=== PATIENT | female | born 1955 | race Caucasian/White ===

== ENCOUNTER 2022-01-20 15:46 | Emergency (ER) | payer MEDICARE, BC, SELFPAY ==
[2022-01-20] VITALS (12 sets, daily range): BP systolic 151–187; BP diastolic 90–116; PULSE 54–68; RESP 28; TEMP 36.4; O2SAT 87–100; BMI 31.6
--- NOTE | 2022-01-20 16:21 | ED_ITS ---
HPI - General Adult General Time Seen by Provider: 16:22 Date Seen: 01/20/22 Chief complaint: Flank Pain Stated complaint: Severe Back Pain (lower left),Nausea Time Seen by Provider: 01/20/22 16:21 Source: patient and RN notes reviewed Mode of arrival: ambulatory Limitations: no limitations History of Present Illness HPI narrative: This 66-year-old female is coming in with sudden onset of left low back pacing that is now radiating around into the lower abdomen that started abruptly a few hours ago. It is severe, is making her extremely nauseated but she has not thrown up yet. No change in bowel habits prior to this. No urinary symptoms with this. She has not been sick with anything like cough cold symptoms. She has had no fevers with this. She has no history of kidney stones. She has had no prior abdominal surgeries. She states she has no underlying kidney problems, is never been treated for hypertension or diabetes. Denies any chronic medical issues, denies prior abdominal surgeries. She is on no medicines. She denies any family history of any kidney stones or any known abdominal issues or surgeries with other family members. She does feel like this left back pain which is now radiating into the abdomen feels like it goes towards her left groin. Related Data Home Medications Medication Instructions Recorded Confirmed No Known Home Medications 01/20/22 01/20/22 Allergies Allergy/AdvReac Type Severity Reaction Status Date / Time codeine Allergy Verified 01/20/22 15:59 Review of Systems Status of ROS: Reports: 10 or more systems reviewed and unremarkable except as noted in History and below PFSH PFSH Social History Smoking Status: Never smoker Do you use any of these nicotine containing products: None Second hand tobacco smoke exposure: No How often do you have a drink containing alcohol: never How often do you have six or more drinks on one occasion: Never AUDIT-C Alcohol total score: 0 Non-prescribed substance use: denies use service: No Exam Const: Vital Signs, click to edit/add: Vital Signs - 24 hr 01/20/22 15:56 01/20/22 16:30 01/20/22 16:44 Temperature 97.6 F 97.6 F Pulse Rate Pulse Rate [Right Pulse Oximeter] 68 68 Respiratory Rate 28 H 28 H Blood Pressure Blood Pressure [Ri ght Upper Arm] 179/91 H 179/91 H 151/90 H Pulse Oximetry 100 100 Oxygen Delivery Me thod Room Air Room Air 01/20/22 17:00 01/20/22 17:28 01/20/22 17:30 Temperature Pulse Rate 61 57 L Pulse Rate [Right Pulse Oximeter] Respiratory Rate Blood Pressure 185/103 H Blood Pressure [Ri ght Upper Arm] 184/108 H Pulse Oximetry 95 87 L Oxygen Delivery Me thod 01/20/22 17:31 01/20/22 17:32 01/20/22 17:45 Temperature Pulse Rate 54 L 56 L 55 L Pulse Rate [Right Pulse Oximeter] Respiratory Rate Blood Pressure 187/110 H Blood Pressure [Ri ght Upper Arm] Pulse Oximetry 98 93 99 Oxygen Delivery Me thod 01/20/22 18:00 01/20/22 18:03 01/20/22 18:15 Temperature Pulse Rate 67 63 62 Pulse Rate [Right Pulse Oximeter] Respiratory Rate Blood Pressure 180/116 H Blood Pressure [Ri ght Upper Arm] Pulse Oximetry 96 99 99 Oxygen Delivery Me thod Documenting provider has reviewed patient's vital signs: yes Common normals: oriented x3, no limitations and alert General appearance: cooperative, well kempt and in distress (Seems quite uncomfortable, keeps eyes closed and is hyperventilating) Nutritional appearance: overweight HENMT: Common normals: normocephalic, head/scalp atraumatic, hearing grossly normal bilaterally, external ears normal, external nose normal, nasal mucous membranes and turbinates normal, moist oral mucous membranes, oropharynx normal, dentition normal and gingiva normal Head and scalp: normocephalic and atraumatic Nose: external nose normal and nasal mucous membranes and turbinates normal External ear: external ears normal Neck & C-Spine: Common normals: full ROM, no lymphadenopathy, supple, no meningeal signs and no JVD Resp: Common normals: normal respiratory effort, no retractions, no use of accessory muscles and clear to auscultation bilaterally Auscultation: clear to auscultation bilaterally Cardio: Common normals: no JVD, regular rate, regular rhythm, S1 normal heart sound, S2 normal heart sound, no gallops, no clicks and no murmurs Rate: regular rate Rhythm: regular rhythm Heart sounds: S1 normal and S2 normal GI: Common normals: Normal to inspection, nondistended, normoactive bowel sounds present, soft to palpation, no hepatosplenomegaly, no masses and no bruits Palpation: soft and no hepatosplenomegaly Other: Has some left mid lateral abdominal pain but no rebound or guarding, no underlying masses. Neuro: Common normals: oriented x3 Sensorium/orientation: alert Meningeal signs: no meningeal signs Psych: Appearance: well kempt Course Course Hospital Course: We will place an IV, initiate Toradol and Zofran for symptom control. She will get a CT noncontrast in appropriate labs including CBC, basic metabolic panel and urinalysis. Reviewed with patient that I suspect that she has a kidney stone. Will consider other intra-abdominal pathology. I doubt this is musculoskeletal. Reevaluation(s) Reevaluation #1: Reviewed with patient her CT findings. We did review the incidental findings of the incompletely visualized right femur cyst, gallstones. We also reviewed her left 2 mm distal kidney stone. We reviewed that this is likely the pass. She is feeling better on the medicines given. Did also review that her blood pressures were elevated here but she is in pain. Also reviewed that her glucose was mildly up at 1:58 a.m., although stressed can increase this. She reported she had a physical in October when her glucose was a little elevated but hemoglobin A1c was normal. Advised patient that this needs to be followed, could be starting to develop some glucose intolerance and might start to see some escalating hemoglobin A1cs. Awaiting on urinalysis and do need to see that prior to discharge. Time: 17:52 Vital Signs Vital signs: Initial Vital Signs Temperature 97.6 F 01/20/22 15:56 Temperature Source Temporal Artery Scan 01/20/22 15:56 Pulse Rate 68 01/20/22 15:56 Respiratory Rate 28 H 01/20/22 15:56 Blood Pressure 179/91 H 01/20/22 15:56 Blood Pressure Mean 120 01/20/22 15:56 Blood Pressure Position Sitting 01/20/22 15:56 Pulse Oximetry 100 01/20/22 15:56 Oxygen Delivery Method 01/20/22 15:56 Vital Signs Temperature 97.6 F 01/20/22 15:56 Pulse Rate 68 01/20/22 15:56 Respiratory Rate 28 H 01/20/22 15:56 Blood Pressure 179/91 H 01/20/22 15:56 Pulse Oximetry 100 12/10/22 15:56 Oxygen Delivery Method 01/20/22 15:56 Temperature 97.6 F 01/20/22 16:30 Pulse Rate 62 01/20/22 18:15 Respiratory Rate 28 H 01/20/22 16:30 Blood Pressure 180/116 H 01/20/22 18:03 Pulse Oximetry 99 01/20/22 18:15 Oxygen Delivery Method 01/20/22 16:30 Medical Decision Making Lab Data Lab results reviewed: Yes I reviewed the patient's lab results Labs: Lab Results 01/20/22 01/20/22 01/20/22 Range/Units 16:35 16:35 18:30 WBC 10.31 (4.50-11.00) K/uL RBC 4.90 (4.00-5.20) m/uL Hgb 13.9 (12.0-16.0) gm/dL Hct 42.1 (33.0-51.0) % MCV 86 (80-100) fL MCH 28 (26-34) pg MCHC 33 (32-36) gm/dL RDW Coeff of Leopoldo 12.8 (11.5-15.5) % Plt Count 307 (140-440) K/uL Neut % (Auto) 80.3 H (42.0-72.0) % Lymph % (Auto) 12.4 L (20-44) % Fajardo % (Auto) 5.0 (0.0-11.0) % Eos % (Auto) 1.0 (0.0-7.0) % Baso % (Auto) 0.5 (0.0-3.0) % Neut # (Auto) 8.30 H (1.7-7.0) K/uL Lymph # (Auto) 1.30 (0.90-2.90) K/uL Fajardo # (Auto) 0.50 (0.00-0.90) K/UL Eos # (Auto) 0.10 (0.00-0.50) K/uL Baso # (Auto) 0.05 (0.00-0.30) K/uL Abs Immat Gran (auto) 0.08 (0.00-0.30) K/uL Imm/Tot Granulo (auto) 0.8 % Sodium 137 (135-149) mmol/L Potassium 3.4 L (3.6-5.1) mmol/L Chloride 104 (96-114) mmol/L Carbon Dioxide 19 L (20-32) mmol/L BUN 16 (7-30) mg/dL Creatinine 0.9 (0.5-1.5) mg/dL Estimated Creat Clear 49.80 Estimated GFR 71 ml/min Glucose 158 H (60-115) mg/dL Calcium 8.9 (8.4-10.6) mg/dL Urine Color Yellow (Yellow) Urine Appearance Clear (Clear) Urine pH 5.5 (5.0-8.5) Ur Specific Hamilton >= 1.030 (1.000-1.030) Urine Protein Negative (Negative) Urine Glucose (UA) Negative (Negative) Urine Ketones 3+ A (Negative) Urine Blood Negative (Negative) Urine Nitrite Negative (Negative) Urine Bilirubin Negative (Negative) Urine Urobilinogen 0.2 (0.2-1.0) Ur Leukocyte Esterase Negative (Negative) Urine RBC 0-2 (0-2) Urine WBC 0-2 (0-5) Ur Squamous Epith Cells Few (None-Few) Urine Bacteria None (None) Imaging Data CT scan - abdomen: Attestation: I have reviewed the pertinent imaging results. Radiologist's impression: Patient: MARBELLA ZELAYA Facility:?[facility] Patient ID:?[id number] Site Patient ID:?[id number]. Site :?[id number] Study:?CT Abdomen/Pelvis W/O-01/20/2022 5:04:01 PM Ordering Physician:Farheen Thakkar Final Report: INDICATION: Left-sided abdominal pain, radiating to back TECHNIQUE: CT abdomen and pelvis without contrast. COMPARISON: None. FINDINGS: [The visualized portions of the lung bases are clear.] Evaluation of the abdominal viscera is limited due to lack of IV contrast, however the liver, spleen, pancreas and adrenal glands are unremarkable.] [Gallstones are present within the nondistended gallbladder.] There is [id number] left hydronephrosis and perinephric inflammatory change. There is a 2 mm obstructing stone within the distal left ureter near the ureterovesical junction. Negative for right hydronephrosis or nephrolithiasis. The bladder is partially distended and unremarkable. Small hiatal hernia. [There are no dilated loops of small bowel to suggest obstruction.][The appendix is normal.][There are scattered colonic diverticuli without adjacent inflammatory change. No intraperitoneal free air or fluid.] Tiny fat containing periumbilical hernia. There is a 1.5 cm cyst, right adnexa. Lucent lesion within the proximal right femur is partially visualized. This measures at least 5 cm and extends into the femoral neck, the visualized overlying cortex is intact. IMPRESSION: 1. Mild to moderate left hydronephrosis with an obstructing 2 mm stone in the distal left ureter, near the ureterovesical junction. 2. Partially visualized lytic bone lesion within the proximal right femur, has a nonaggressive appearance, however is only partially visualized. Given the location this could potentially lead to a pathologic fracture. Recommend comparison to prior exams if available if no priors exams are available for comparison, consider initial further evaluation with radiographs. Please note that all CT scans at this facility use dose modulation, iterative reconstruction, and/or weight-based dosing when appropriate to reduce radiation dose to as low as reasonably achievable. Dictated by: Emam Contreras MD @ 01/20/2022 17:41:38 (Electronic Signature) Critical Care Time Critical Care Time Critical Care Time: No Discharge Plan Discharge Clinical Impression: Bone cyst of right femur, Gallstones, Renal colic on left side Condition: Stable Instructions: Gallstones (ED), Kidney Stones (ED), Renal Colic (ED) Additional Instructions: Use Toradol as needed for pain. Can supplement with Tylenol following bottle directions if needed for extra pain control. Use the Zofran as needed to control nausea. Do need to try to drink adequate fluids to have clear looking urine. As far as the kidney stone, this is 2 mm and should pass. Do need to see your primary care provider in follow-up within the next week. Need to review the incidental findings, have your blood pressure rechecked and discuss ongoing close monitoring of your glucose. For the femur cyst on the right side that was incompletely visualized on the CT, it may be that an MRI of the femur should be ordered, your primary care provider can talk to Radiology to see what is recommended for imaging. If you become symptomatic with gallstones, do need medical evaluation in the future. If you develop fever, uncontrolled pain or vomiting with this kidney stone, do need to return to the ED for further evaluation. Activity Level: Activity as Tolerated Discharge Diet: Regular Prescriptions: No Action No Known Home Medications Stand Alone Forms: [address] [facility] Fund I Info Instructions
--- NOTE | 2022-01-20 16:26 | CRLHL7_ITS ---
For Patients: As a result of the Century Cures Act, medical imaging exams and procedure reports are released immediately into your electronic medical record. You may view this report before your referring provider. If you have questions, please contact your health care provider. INDICATION: Left-sided abdominal pain, radiating to back TECHNIQUE: CT abdomen and pelvis without contrast. COMPARISON: None. FINDINGS: [The visualized portions of the lung bases are clear.] Evaluation of the abdominal viscera is limited due to lack of IV contrast, however the liver, spleen, pancreas and adrenal glands are unremarkable.] [Gallstones are present within the nondistended gallbladder.] There is pcku-kj-[id number] left hydronephrosis and perinephric inflammatory change. There is a 2 mm obstructing stone within the distal left ureter near the ureterovesical junction. Negative for right hydronephrosis or nephrolithiasis. The bladder is partially distended and unremarkable. Small hiatal hernia. [There are no dilated loops of small bowel to suggest obstruction.][The appendix is normal.][There are scattered colonic diverticuli without adjacent inflammatory change. No intraperitoneal free air or fluid.] Tiny fat containing periumbilical hernia. There is a 1.5 cm cyst, right adnexa. Lucent lesion within the proximal right femur is partially visualized. This measures at least 5 cm and extends into the femoral neck, the visualized overlying cortex is intact. IMPRESSION: 1. Mild to moderate left hydronephrosis with an obstructing 2 mm stone in the distal left ureter, near the ureterovesical junction. 2. Partially visualized lytic bone lesion within the proximal right femur, has a nonaggressive appearance, however is only partially visualized. Given the location this could potentially lead to a pathologic fracture. Recommend comparison to prior exams if available if no priors exams are available for comparison, consider initial further evaluation with radiographs. Please note that all CT scans at this facility use dose modulation, iterative reconstruction, and/or weight-based dosing when appropriate to reduce radiation dose to as low as reasonably achievable. Dictated by: Emma Contreras MD @ 01/20/2022 17:41:38 (Electronically Signed)
[2022-01-20 16:44] LABS: Basophils Absolute Auto 0.05 K/uL (0.00-0.30); Basophils Percent Auto 0.5 % (0.0-3.0); Hematocrit 42.1 % (33.0-51.0); Hemoglobin* 13.9 gm/dL (12.0-16.0); Immature Granulocytes Abs Auto 0.08 K/uL (0.00-0.30); Immature Granulocytes Pct Auto 0.8 %; Lymphocytes Percent Auto 12.4 % (20-44); Mean Corpuscular HGB Conc 33 gm/dL (32-36); Mean Corpuscular Hemoglobin 28 pg (26-34); Mean Corpuscular Volume 86 fL (80-100); Neutrophils Percent Auto 80.3 % (42.0-72.0); Platelet Count* 307 K/uL (140-440); RDW Coefficient of Variation % 12.8 % (11.5-15.5); White Blood Count* 10.31 K/uL (4.50-11.00)
[2022-01-20 16:49] LABS: Slide Review Reflex No
[2022-01-20 16:57] LABS: Chloride* 104 mmol/L (96-114); Potassium* 3.4 mmol/L (3.6-5.1); Sodium* 137 mmol/L (135-149)
[2022-01-20] MEDS: ONDANSETRON 2 MG/ML inj 4 MG IVP (16:58)
[2022-01-20] MEDS: KETOROLAC 15 MG/ML inj IVP (16:58)
[2022-01-20] MEDS: 0.9 % SODIUM CHLORIDE 1000 ml 1,000 ML 500 ML IV (16:58)
[2022-01-20 17:00] LABS: Blood Urea Nitrogen* 16 mg/dL (7-30); Carbon Dioxide* 19 mmol/L (20-32); Creatinine* 0.9 mg/dL (0.5-1.5); Estimated Glomerular Filt Rate 71 ml/min; Glucose* 158 mg/dL (60-115)
[2022-01-20 17:01] LABS: Calcium* 8.9 mg/dL (8.4-10.6)
[2022-01-20 18:36] LABS: Appearance Urine Clear (Clear); Bilirubin Urine Negative (Negative); Blood Urine Negative (Negative); Color Urine Yellow (Yellow); Glucose Urine Negative (Negative); Ketones Urine 3+ (Negative); Leukocyte Esterase Urine Negative (Negative); Nitrite Urine Negative (Negative); Protein Urine Negative (Negative); Specific Gravity Urine >= 1.030 (1.000-1.030); Urobilinogen Urine 0.2 (0.2-1.0); pH Urine 5.5 (5.0-8.5)
[2022-01-20 19:16] LABS: RBC Urine 0-2 (0-2); Squamous Epithelial Cell Urine Few (None-Few); WBC Urine 0-2 (0-5)
== END 2022-01-20 19:35 | disposition home or self-care (01) ==
PROVIDERS: Emergency Provider Family Medicine; PCP Family Medicine
DX: N20.0 Calculus of kidney (principal); K80.80 Other cholelithiasis without obstruction; M85.651 Other cyst of bone, right thigh
CPT/HCPCS: 36415; 74176; 80048; 81001; 85025; 96374; 96375; 99284; J1885; J2405; J7030

== ENCOUNTER 2022-10-30 13:00 | Outpatient (RCR) | payer MEDICARE, BC, SELFPAY | END 2022-10-30 16:50 | disposition home or self-care (01) | PROVIDERS: PCP Family Medicine; Visit Provider Orthopaedic Surgery | DX: M17.12 Unilateral primary osteoarthritis, left knee (principal); M23.309 Other meniscus derangements, unspecified meniscus, unspecified knee; M25.562 Pain in left knee; M62.81 Muscle weakness (generalized); R26.2 Difficulty in walking, not elsewhere classified; Z51.89 Encounter for other specified aftercare | CPT/HCPCS: 97110; 97161 ==

== ENCOUNTER 2023-03-26 10:15 | Outpatient (RCR) | payer MEDICARE, BC, SELFPAY | END 2023-07-24 23:59 | disposition home or self-care (01) | PROVIDERS: PCP Family Medicine; Visit Provider Family Medicine | DX: M25.551 Pain in right hip (principal); Z51.89 Encounter for other specified aftercare | CPT/HCPCS: 97110; 97140; 97162 ==